=== PATIENT | female | born 1960 ===

== ENCOUNTER 2021-11-10 11:05 | Outpatient (REF) | payer BC, SELFPAY | END 2021-11-10 11:06 | disposition home or self-care (01) | LOC: HO.WFDLDS 11:05 | PROVIDERS: Visit Provider Internal Medicine | DX: Z20.822 Contact with and (suspected) exposure to COVID-19 (principal) | CPT/HCPCS: C9803; U0003; U0005 ==

== ENCOUNTER 2022-05-05 11:13 | Outpatient (REF) | payer BC, SELFPAY ==
[2022-05-05 13:38] LABS: Anion Gap 11 (12-20); Blood Urea Nitrogen 14 mg/dL (9-16); Calcium 9.7 mg/dL (8.4-10.2); Carbon Dioxide 27 mmol/L (22-29); Chloride 102 mmol/L (96-108); Estimated Glomerular Filt Rate > 60; Glucose Fasting 135 mg/dL (60-99); Potassium 4.7 mmol/L (3.3-5.1); Sodium 135 mmol/L (135-145)
[2022-05-05 14:12] LABS: Vitamin B12 266 pg/mL (200-900)
[2022-05-07 02:25] LABS: Lyme Abs Screen <0.90 index
[2022-05-08 13:12] LABS: IgA 191 mg/dL (70-320); IgG 445 mg/dL (600-1540); IgM 347 mg/dL (50-300)
== END 2022-05-05 11:14 | disposition home or self-care (01) ==
LOC: HO.LAB 11:13
PROVIDERS: Psychiatry & Neurology Neurology; Visit Provider Internal Medicine
DX: G62.9 Polyneuropathy, unspecified (principal)
CPT/HCPCS: 36415; 80048; 82607; 82746; 82784; 86334; 86617; 86618